=== PATIENT | female | born 1985 | race American Indian/Alaskan Native ===

== ENCOUNTER 2017-01-12 13:36 | Emergency (ER) | payer SELFPAY ==
--- NOTE | 2017-01-12 14:31 | Emergency Department Report ---
Stated Complaint: LEFT HIP,KNEE AND ANKLE PAIN Time Seen by Provider: 01/12/17 14:28 - HPI History of Present Illness: PT states she is having pain in her foot, ankle, knee, thigh and hip x 1.5 months. PT states she is having the pain everyday. PT states she has had this pain before and it resolved. PT has taken OTC medication with mild relief. PT states she has a hx of arthritis in her L ankle - ROS Review of Systems: -f/c + low back pain - Exam Physical Exam: steady gait in triage. no muscular deformity noted. MSE screening note: Focused history and physical exam performed. Due to findings the following was ordered: ED Disposition for MSE Condition: Stable
[2017-01-12] MEDS ORDERED: NORCO 10/325 PO ONE (15:49)
--- NOTE | 2017-01-12 15:58 | XRay Report ---
LEFT KNEE, 3 views: History: Left knee pain. The bony architecture is intact without evidence of fracture or dislocation. No significant soft tissue abnormality is seen. IMPRESSION: Normal left knee.
--- NOTE | 2017-01-12 15:58 | XRay Report ---
LEFT HIP, 2 views: History: Left hip pain. The bony architecture is intact without evidence of fracture or dislocation. No significant soft tissue abnormality is seen. IMPRESSION: Normal left hip.
--- NOTE | 2017-01-12 17:41 | Emergency Department Report ---
ED General Adult HPI - General Chief complaint: Extremity Injury, Lower Stated complaint: LEFT HIP,KNEE AND ANKLE PAIN Time Seen by Provider: 01/12/17 14:28 Source: patient Mode of arrival: Ambulatory Limitations: No Limitations - History of Present Illness Initial comments: Patient is a 31-year-old female past medical history of obesity and arthritis. Who presents with left hip pain and left knee pain and left ankle pain. Patient states that symptoms are a 7 out of 10. Walking makes the pain worse resting makes it better. Patient's pain is intermittent patient's pain radiates throughout her leg.. Her pain is an achy type of pain. This is been going on for 1 month. Patient denies having any trauma to her leg or knee or thigh. Patient states that she takes daily medications for arthritis. Severity scale (0 -10): 8 - Related Data Home Medications Medication Instructions Recorded Confirmed Last Taken No Known Home Medications [No 01/12/17 01/12/17 Unknown Reported Home Medications] Allergies Allergy/AdvReac Type Severity Reaction Status Date / Time No Known Allergies Allergy Verified 01/12/17 15:24 ED Review of Systems ROS: Stated complaint: LEFT HIP,KNEE AND ANKLE PAIN Other details as noted in HPI Constitutional: denies: chills, fever Eyes: denies: eye pain, eye discharge, vision change ENT: denies: ear pain, throat pain Respiratory: denies: cough, shortness of breath, wheezing Cardiovascular: denies: chest pain, palpitations Endocrine: no symptoms reported Gastrointestinal: denies: abdominal pain, nausea, diarrhea Genitourinary: denies: urgency, dysuria, discharge Musculoskeletal: arthralgia. denies: back pain, joint swelling Skin: denies: rash, lesions Neurological: denies: headache, weakness, paresthesias Psychiatric: denies: anxiety, depression Hematological/Lymphatic: denies: easy bleeding, easy bruising ED Past Medical Hx - Past Medical History Hx Hypertension: No Hx CVA: No Hx Congestive Heart Failure: No Hx Diabetes: Yes (type 2) Hx Deep Vein Thrombosis: Yes (2006) Hx Pulmonary Embolism: No Hx GERD: No Hx Renal Disease: No Hx Sickle Cell Disease: No Hx Arthritis: No Hx Headaches / Migraines: No Hx Seizures: No Hx Kidney Stones: No Hx Psychiatric Treatment: No Hx Asthma: No Hx Tuberculosis: No Hx Dementia: No Hx HIV: No Additional medical history: OBESITY. Not on anticoagulants now. - Surgical History Hx Coronary Stent: No Hx Open Heart Surgery: No Hx Cholecystectomy: No Hx Appendectomy: No Hx Breast Surgery: No Additional Surgical History: 2 c-sections - Social History Smoking Status: Current Every Day Smoker Substance Use Type: None - Medications Home Medications: Home Medications Medication Instructions Recorded Confirmed Last Taken Type No Known Home Medications [No 01/12/17 01/12/17 Unknown History Reported Home Medications] ED Physical Exam - General Limitations: No Limitations General appearance: obese - Head Head exam: Present: atraumatic, normocephalic - Eye Eye exam: Present: normal appearance - ENT ENT exam: Present: mucous membranes moist - Neck Neck exam: Present: normal inspection - Respiratory Respiratory exam: Present: normal lung sounds bilaterally. Absent: respiratory distress - Cardiovascular Cardiovascular Exam: Present: regular rate, normal rhythm. Absent: systolic murmur, diastolic murmur, rubs, gallop - GI/Abdominal GI/Abdominal exam: Present: soft, normal bowel sounds - Extremities Exam Extremities exam: Present: normal inspection - Back Exam Back exam: Present: normal inspection - Neurological Exam Neurological exam: Present: alert, oriented X3 - Psychiatric Psychiatric exam: Present: normal affect, normal mood - Skin Skin exam: Present: warm, dry, intact, normal color. Absent: rash ED Course Vital Signs 01/12/17 01/12/17 14:29 16:28 Temperature 98.3 F Pulse Rate 79 65 Respiratory 16 20 Rate Blood Pressure 132/90 Blood Pressure 101/66 [Right] O2 Sat by Pulse 100 100 Oximetry - Reevaluation(s) Reevaluation #1: 01/12/17 17:40 Patient is feeling better discussed with patient that she will be sent home. 01/12/17 17:46 ED Medical Decision Making - Lab Data Lab Results 01/12/17 Range/Units 14:37 HCG, Qual Negative (Negative) - Radiology Data Radiology results: report reviewed, image reviewed Left knee x-ray: Shows no acute osseous injury Left hip x-ray: Shows no acute osseous injury - Medical Decision Making Chief medical diagnosis: Arthralgia secondary to obesity Differential medical diagnosis: patellofemoral pain syndrome, quadriceps tendon strain, hip fracture, knee fracture I will get hip and knee x-rays and I will give patient oral analgesic medication. Patient's clinical symptoms are consistent with arthralgia secondary to obesity. Patient home to have follow up with her primary care provider. Patient agrees with plan. Critical care attestation.: If time is entered above; I have spent that time in minutes in the direct care of this critically ill patient, excluding procedure time. ED Disposition Clinical Impression: Left hip pain Left knee pain Qualifiers: Chronicity: chronic Qualified Code(s): M25.562 - Pain in left knee; G89.29 - Other chronic pain Obesity Qualifiers: Obesity type: due to excess calories Obesity classification: adult class 3 ( BMI >= 40) Serious obesity comorbidity presence: without serious comorbidity Body mass index: BMI 45.0-49.9 Qualified Code(s): E66.09 - Other obesity due to excess calories; Z68.42 - Body mass index (BMI) 45.0-49.9, adult Disposition: - TO HOME OR SELFCARE Is pt being admited?: No Does the pt Need Aspirin: No Condition: Stable Instructions: Arthralgia (ED) Referrals: PRIMARY CARE, [Primary Care Provider] - 3-5 Days Time of Disposition: 17:45
[2017-01-12 18:02] VITALS: BP 143/91
== END 2017-01-12 18:02 | disposition home or self-care (01) ==
LOC: ED 13:36
DX: M25.562 Pain in left knee (principal); M25.552 Pain in left hip; G89.29 Other chronic pain; E66.09 Other obesity due to excess calories; Z68.42 Body mass index [BMI] 45.0-49.9, adult; E11.9 Type 2 diabetes mellitus without complications; I82.409 Acute embolism and thrombosis of unspecified deep veins of unspecified lower extremity; F17.200 Nicotine dependence, unspecified, uncomplicated
CPT/HCPCS: 36415; 84703

== ENCOUNTER 2021-09-05 18:47 | Emergency (ER) | payer MEDICAID ==
--- NOTE | 2021-09-05 21:28 | XRay Report ---
XR hip 2-3V LT, XR tibia fibula 2V LT, XR ankle 3+V LT INDICATION / CLINICAL INFORMATION: INJURY. COMPARISON: None available. FINDINGS: Pelvis/left hip: No acute fracture or malalignment. There is no significant arthritis. Mild prominenc e of the femoral head neck junction bilaterally, may predispose to femoroacetabular impingement. No f ocal soft tissue abnormality. Left tibia-fibula/ankle: There are degenerative changes of the lateral compartment of the left knee. Old fracture deformity of the distal fibula. There is also mild deformity of the medial malleolus, mercer ggestive of prior fracture. 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 No acute fractur e or malalignment. No focal soft tissue abnormality. IMPRESSION: 1. Sequela of prior fracture of the ankle with moderate posttraumatic osteoarthritis. 2. No acute findings of the left hip, foreleg, or ankle. 3. Other incidental findings as above. Signer Name: Silverio Rodriguez MD Signed: 09/05/2021 9:24 PM Workstation Name: [id number]
[2021-09-05] MEDS ORDERED: KETOROLAC 10 MG TAB PO ONE (22:37)
--- NOTE | 2021-09-05 22:39 | Emergency Department Report ---
ED Extremity Problem HPI - General Chief complaint: Extremity Problem,Nontraumatic Stated complaint: LT SIDE/HIP PAIN Time Seen by Provider: 09/05/21 22:33 Source: patient Mode of arrival: Wheelchair Limitations: No Limitations - History of Present Illness Initial comments: L HIP, L LEG, AND L ANKLE PAIN, STATE CHRONIC INJURY THAT IS NOT HEALING AND NEE DS X RAYS Complaint: extremity pain -: year(s) Location: left, lower extremity History of Same: Yes -: Yes arthralgia Radiation: none Severity scale (0 -10): 4 Quality: aching Consistency: constant Associated Symptoms: denies: denies other symptoms, chest pain, shortness of breath - Related Data Home Medications Medication Instructions Recorded Confirmed Last Taken No Known Home Medications [No 01/12/17 01/12/17 Unknown Reported Home Medications] Allergies Allergy/AdvReac Type Severity Reaction Status Date / Time No Known Allergies Allergy Verified 01/12/17 15:24 ED Review of Systems ROS: Stated complaint: LT SIDE/HIP PAIN Other details as noted in HPI Constitutional: denies: chills, fever Eyes: denies: eye pain, eye discharge, vision change ENT: denies: ear pain, throat pain Respiratory: denies: cough, shortness of breath, wheezing Cardiovascular: denies: chest pain, palpitations Endocrine: no symptoms reported Gastrointestinal: denies: abdominal pain, nausea, diarrhea Genitourinary: denies: urgency, dysuria, discharge Musculoskeletal: denies: back pain, joint swelling, arthralgia Skin: denies: rash, lesions Neurological: denies: headache, weakness, paresthesias Psychiatric: denies: anxiety, depression Hematological/Lymphatic: denies: easy bleeding, easy bruising ED Past Medical Hx - Past Medical History Hx Hypertension: No Hx CVA: No Hx Congestive Heart Failure: No Hx Diabetes: Yes (type 2) Hx Deep Vein Thrombosis: Yes (2006) Hx Pulmonary Embolism: No Hx GERD: No Hx Renal Disease: No Hx Sickle Cell Disease: No Hx Arthritis: No Hx Headaches / Migraines: No Hx Seizures: No Hx Kidney Stones: No Hx Psychiatric Treatment: No Hx Asthma: No Hx Tuberculosis: No Hx Dementia: No Hx HIV: No Additional medical history: OBESITY. Not on anticoagulants now. - Surgical History Hx Coronary Stent: No Hx Open Heart Surgery: No Hx Cholecystectomy: No Hx Appendectomy: No Hx Breast Surgery: No Additional Surgical History: 2 c-sections - Social History Smoking Status: Current Every Day Smoker Substance Use Type: None - Medications Home Medications: Home Medications Medication Instructions Recorded Confirmed Last Taken Type No Known Home Medications [No 01/12/17 01/12/17 Unknown History Reported Home Medications] ED Physical Exam - General Limitations: No Limitations General appearance: alert, in no apparent distress - Head Head exam: Present: atraumatic, normocephalic - Eye Eye exam: Present: normal appearance - ENT ENT exam: Present: mucous membranes moist - Neck Neck exam: Present: normal inspection - Respiratory Respiratory exam: Present: normal lung sounds bilaterally. Absent: respiratory distress - Cardiovascular Cardiovascular Exam: Present: regular rate, normal rhythm. Absent: systolic murmur, diastolic murmur, rubs, gallop - GI/Abdominal GI/Abdominal exam: Present: soft, normal bowel sounds - Extremities Exam Extremities exam: Present: normal inspection - Back Exam Back exam: Present: normal inspection - Neurological Exam Neurological exam: Present: alert, oriented X3 - Psychiatric Psychiatric exam: Present: normal affect, normal mood - Skin Skin exam: Present: warm, dry, intact, normal color. Absent: rash ED Course Vital Signs 09/05/21 09/05/21 20:18 20:44 Temperature 98.2 F Pulse Rate 69 Respiratory 20 18 Rate Blood Pressure 149/88 O2 Sat by Pulse 98 Oximetry Critical care attestation.: If time is entered above; I have spent that time in minutes in the direct care of this critically ill patient, excluding procedure time. ED Disposition Clinical Impression: Left leg pain, Arthritis Disposition: HOME / SELF CARE / HOMELESS Is pt being admited?: No Does the pt Need Aspirin: No Condition: Stable Instructions: Osteoarthritis, Arthritis
[2021-09-05 23:57] VITALS: BP 152/89
== END 2021-09-06 00:28 | disposition home or self-care (01) ==
LOC: ED 18:47
DX: M19.072 Primary osteoarthritis, left ankle and foot (principal); M79.605 Pain in left leg; F17.200 Nicotine dependence, unspecified, uncomplicated
CPT/HCPCS: 99283

== ENCOUNTER 2022-01-21 04:21 | Emergency (ER) | payer MEDICAID ==
[2022-01-21 04:42] VITALS: BP 137/96
[2022-01-21 07:07] LABS: Mucus,Urine FEW /HPF
[2022-01-21 07:09] LABS: Color,Urine Yellow (Yellow)
[2022-01-21 07:10] LABS: HCG Qualitative,Urine Negative (Negative)
[2022-01-21 07:34] LABS: Basophils # (Auto) 0.1 K/mm3 (0.0-0.1); Basophils % (Auto) 1.3 % (0.0-1.8); Eosinophils # (Auto) 0.7 K/mm3 (0.0-0.4); Eosinophils % (Auto) 7.1 % (0.0-4.3); Hemoglobin 13.6 gm/dl (10.1-14.3); Lymphocytes # (Auto) 3.6 K/mm3 (1.2-5.4); Lymphocytes % (Auto) 35.9 % (13.4-35.0); Mean Corpuscular HGB Conc 32 % (30-34); Mean Corpuscular Volume 89 fl (79-97); Monocytes # (Auto) 0.5 K/mm3 (0.0-0.8); Monocytes % (Auto) 4.7 % (0.0-7.3); Platelet Count 313 K/mm3 (140-440); Red Blood Count 4.69 M/mm3 (3.65-5.03); Red Cell Distribution Width 17.3 % (13.2-15.2)
[2022-01-21 07:53] LABS: Alanine Aminotransferase 7 units/L (7-56); Albumin 3.7 g/dL (3.9-5); Blood Urea Nitrogen 6 mg/dL (7-17); Calcium 9.1 mg/dL (8.4-10.2); Hemolysis Index 80
[2022-01-21 07:59] LABS: BUN/Creatinine Ratio 9
--- NOTE | 2022-01-21 08:13 | Emergency Department Report ---
ED Female HPI - General Chief complaint: Abdominal Pain Stated complaint: LEFT SIDE FLANK PAIN Source: patient Mode of arrival: Ambulatory Limitations: No Limitations - History of Present Illness Initial comments: 36-year-old female patient presents to the ED complaining dysuria frequency with foul odor x2 days. She denies any nausea ,vomiting fever or chills at present time. Patient is alert and oriented x3. No acute distress noted. No ill appearance noted. Patient denies any abdominal pain at present time. Onset/Timin -: This morning Severity scale (0 -10): 6 Quality: cramping Consistency: intermittent Improves with: none Worsens with: urination Are you Now?: No - Related Data Sexually active: No Previous Rx's Medication Instructions Recorded Last Taken Type Ketorolac [Toradol] 10 mg PO Q6H PRN #14 09/05/21 Unknown Rx Ketorolac [Toradol] 10 mg PO Q6H PRN 5 Days #20 tab 01/21/22 Unknown Rx Phenazopyridine [Pyridium] 200 mg PO BID 2 Days #6 tab 01/21/22 Unknown Rx Sulfamethoxazole/Trimethoprim 1 each PO BID 10 Days #20 tab 01/21/22 Unknown Rx [Bactrim DS TAB] Allergies Allergy/AdvReac Type Severity Reaction Status Date / Time No Known Allergies Allergy Verified 01/12/17 15:24 ED Review of Systems ROS: Stated complaint: LEFT SIDE FLANK PAIN Other details as noted in HPI Constitutional: denies: chills, fever Eyes: denies: eye pain, eye discharge, vision change ENT: denies: ear pain, throat pain Respiratory: denies: cough, shortness of breath, wheezing Cardiovascular: denies: chest pain, palpitations Endocrine: no symptoms reported Gastrointestinal: denies: abdominal pain, nausea, diarrhea Genitourinary: urgency, dysuria, frequency. denies: discharge Musculoskeletal: denies: back pain, joint swelling, arthralgia Skin: denies: rash, lesions Neurological: denies: headache, weakness, paresthesias Psychiatric: denies: anxiety, depression Hematological/Lymphatic: denies: easy bleeding, easy bruising ED Past Medical Hx - Past Medical History Hx Hypertension: Yes Hx CVA: No Hx Congestive Heart Failure: No Hx Diabetes: Yes Hx Deep Vein Thrombosis: Yes (2006) Hx Pulmonary Embolism: No Hx GERD: No Hx Renal Disease: No Hx Sickle Cell Disease: No Hx Arthritis: Yes Hx Headaches / Migraines: No Hx Seizures: No Hx Kidney Stones: No Hx Psychiatric Treatment: No Hx Asthma: No Hx Tuberculosis: No Hx Dementia: No Hx HIV: No Additional medical history: OBESITY. Not on anticoagulants now. - Surgical History Hx Coronary Stent: No Hx Open Heart Surgery: No Hx Cholecystectomy: No Hx Appendectomy: No Hx Breast Surgery: No Additional Surgical History: 2 c-sections - Social History Smoking Status: Current Every Day Smoker Substance Use Type: None - Medications Home Medications: Home Medications Medication Instructions Recorded Confirmed Last Taken Type Ketorolac [Toradol] 10 mg PO Q6H PRN #14 09/05/21 Unknown Rx Ketorolac [Toradol] 10 mg PO Q6H PRN 5 Days #20 tab 01/21/22 Unknown Rx Phenazopyridine [Pyridium] 200 mg PO BID 2 Days #6 tab 01/21/22 Unknown Rx Sulfamethoxazole/Trimethoprim 1 each PO BID 10 Days #20 tab 01/21/22 Unknown Rx [Bactrim DS TAB] ED Physical Exam - General Limitations: No Limitations General appearance: alert, in no apparent distress - Head Head exam: Present: atraumatic, normocephalic - Eye Eye exam: Present: normal appearance - ENT ENT exam: Present: mucous membranes moist - Neck Neck exam: Present: normal inspection - Respiratory Respiratory exam: Present: normal lung sounds bilaterally. Absent: respiratory distress - Cardiovascular Cardiovascular Exam: Present: regular rate, normal rhythm. Absent: systolic murmur, diastolic murmur, rubs, gallop - GI/Abdominal GI/Abdominal exam: Present: soft, normal bowel sounds - Extremities Exam Extremities exam: Present: normal inspection - Back Exam Back exam: Present: normal inspection - Neurological Exam Neurological exam: Present: alert, oriented X3 - Psychiatric Psychiatric exam: Present: normal affect, normal mood - Skin Skin exam: Present: warm, dry, intact, normal color. Absent: rash ED Course Vital Signs 01/21/22 04:26 Temperature 98.8 F Pulse Rate 78 Respiratory 19 Rate Blood Pressure 137/96 [Right] O2 Sat by Pulse 96 Oximetry ED Medical Decision Making - Lab Data Result diagrams: 01/21/22 07:14 01/21/22 07:14 - Medical Decision Making 36-year-old female patient presents to the ED complaining dysuria frequency with foul odor x2 days. She denies any nausea ,vomiting fever or chills at present time. Patient is alert and oriented x3. No acute distress noted. No ill appearance noted. Patient denies any abdominal pain at present time. Physical examination is unremarkable Rechecked the patient is resting quietly , comfortable and feeling better. I discussed the results of diagnostic study, my clinical impression and the plan for further treatment with the patient. Patient agrees with plan and discharge at this present time. All question addressed. I have given the patient instruction regarding a diagnosis ,expectation ,follow- up and return precaution. I explained to the patient that emergent condition may arise and to return to the ED for new worsen and any new persisting condition. I have explained the importance of following up with the primary care physician or referral physician listed below has instructed. The patient verbalized understanding of discharge instruction. Abnormal Lab Results 01/21/22 01/21/22 01/21/22 06:48 07:14 07:14 WBC 10.0 RBC 4.69 Hgb 13.6 Hct 42.0 MCV 89 MCH 29 MCHC 32 RDW 17.3 H Plt Count 313 Lymph % (Auto) 35.9 H [place] % (Auto) 4.7 Eos % (Auto) 7.1 H Baso % (Auto) 1.3 Lymph # (Auto) 3.6 [place] # (Auto) 0.5 Eos # (Auto) 0.7 H Baso # (Auto) 0.1 Seg Neutrophils % 51.0 Seg Neutrophils # 5.1 Sodium 138 Potassium 4.9 Chloride 104.4 Carbon Dioxide 23 Anion Gap 16 BUN 6 L Creatinine 0.7 Estimated GFR > 60 BUN/Creatinine Ratio 9 Glucose 97 Calcium 9.1 Total Bilirubin < 0.20 AST 12 ALT 7 Alkaline Phosphatase 92 Total Protein 7.1 Albumin 3.7 L Albumin/Globulin Ratio 1.1 Lipase 27 Urine Color Yellow Urine Turbidity Clear Specific [place] (Man) 1.015 Ur Protein (Man) Negative Ur Ketones (Man) Negative Ur Nitrite (Man) Negative Ur Reducing Substances Not Reportable Urine Bilirubin (Man) Negative Urine Ictotest Not Reportable Leukocyte Esterase (Man) Negative Urine WBC (Auto) 13.0 H Urine RBC (Auto) 1.0 U Epithel Cells (Auto) 2.0 Urine RBC (Manual) Negative Urine Mucus Few Urine HCG, Qual Negative Critical care attestation.: If time is entered above; I have spent that time in minutes in the direct care of this critically ill patient, excluding procedure time. ED Disposition Clinical Impression: Urinary tract infection Qualifiers: Urinary tract infection type: site unspecified Hematuria presence: without hematuria Qualified Code(s): N39.0 - Urinary tract infection, site not specified Disposition: HOME / SELF CARE / HOMELESS Is pt being admited?: No Does the pt Need Aspirin: No Condition: Stable Instructions: Urinary Tract Infection, Adult, [id number], Abdominal Pain (ED) Additional Instructions: Take medication as prescribed Return to the ED for any worsening symptom Prescriptions: Sulfamethoxazole/Trimethoprim [Bactrim DS TAB] 1 each PO BID 10 Days #20 tab Phenazopyridine [Pyridium] 200 mg PO BID 2 Days #6 tab Ketorolac [Toradol] 10 mg PO Q6H PRN 5 Days #20 tab PRN Reason: Pain Referrals: [facility] [Provider Group] - 3-5 Days Forms: Work/School Release Form(ED) Time of Disposition: 08:16
== END 2022-01-21 09:14 | disposition home or self-care (01) ==
LOC: ED 04:21
DX: N39.0 Urinary tract infection, site not specified (principal); I10 Essential (primary) hypertension; E11.9 Type 2 diabetes mellitus without complications; M19.90 Unspecified osteoarthritis, unspecified site; F17.200 Nicotine dependence, unspecified, uncomplicated; Z79.899 Other long term (current) drug therapy
CPT/HCPCS: 36415; 80053; 81001; 81025; 83690; 85025; 87086; 99283